=== PATIENT | female | born 1950 | race Caucasian/White ===

== ENCOUNTER 2016-03-15 02:29 | Inpatient (IN) | payer MEDICARE ==
[~2016-03-15] VITALS: Ht 162.6 cm; Wt 81.4 kg
[~2016-03-15 02:29] MED LIST: AMOX1TAB61 PO; AZAT50TA PO; CLON1TAB3 PO; CLON2TAB2 PO; LACT20SO PO; OMEP20CA9 PO; PARO40TA45 PO; POTA20TA12 PO
[2016-03-15] MEDS ORDERED: FENTANYL PF 100 MCG/2 ML VIAL. IV PRN (04:00)
--- NOTE | 2016-03-15 04:10 | RAD ---
Examination: CT head and cervical spine and maxillofacial bones without contrast. History: History of neck pain, headache after fall. COMPARISON None available TECHNIQUE Axial CT images of the head was performed without contrast and axial CT images of cervical spine was performed without contrast. Coronal sagittal reformats were performed.Axial CT images of the facial bones were performed without contrast. Coronal sagittal reformats were performed. Findings. There is no evidence of midline shift. No acute intracranial bleed or extra-axial fluid collection identified. Daley-white matter differentiation is maintained. The basal cisterns are not effaced. The bilateral orbital globes appear intact with retro-orbital fat is maintained . The evaluation of the facial bones is somewhat limited due to positioning of the face in the CT gantry. Grossly the orbital clarke appear intact. There is mild soft tissue density identified in the region of the nose could be secondary to injury. There is mild opacity identified in the bilateral ethmoidal sinus could be due to sinus disease . There is a mild soft tissue prominence identified in the nasal septum, Injury to nasal septum is not completely excluded.Correlate clinically. The vertebral body heights are maintained. There is no acute fracture cervical spine. Moderate degenerative changes identified at C4-C5, C5-C6 vertebral levels. There is partially visualized density measuring 41 Hounsfield units identified along the right posterior apical pleura could be pleural thickening or effusion. IMPRESSION - No acute intracranial findings. - No acute fracture of the cervical spine. - No obvious acute fracture of the facial bones.Probable soft tissue swelling identified in the region of the nose could be secondaryinjury. There is mild soft tissue density identified in the anterior nasal septum region probably physiological and less likely injury. Correlate clinically.The evaluation of the facial bones is somewhat limited due to positioning of the face in the CT gantry. Grossly the orbital clarke appear intact. - There is partially visualized density measuring 41 Hounsfield units identified along the right posterior apical pleura could be pleural thickening or effusion. Electronically signed by: Ar Moody (Mar 15, 2016 04:09:31)
[2016-03-15 04:13] LABS: BASO % 1 % (0-3); EOS % 6 % (0-3); HEMATOCRIT 25.1 % (36.0-47.0); HEMOGLOBIN 8.6 g/dL (12.0-15.5); LYMPH # 0.4 x10^3/uL (1.0-4.8); LYMPH % 36 % (24-48); MEAN CORPUSCULAR HEMOGLOBIN 37 pg (25-35); MEAN CORPUSCULAR HGB CONC 34 g/dL (31-37); MEAN CORPUSCULAR VOLUME 109 fL (79-100); MONO % 11 % (0-9); NEUT % 46 % (31-73); PLATELET COUNT 56 x10^3/uL (140-400); RED BLOOD COUNT 2.31 x10^6/uL (3.50-5.40); RED CELL DISTRIBUTION WIDTH 30.3 % (11.5-14.5)
[2016-03-15 04:15] LABS: WHITE BLOOD COUNT 1.1 x10^3/uL (4.0-11.0)
[2016-03-15 04:18] LABS: CALCIUM 8.3 mg/dL (8.5-10.1); CREATININE 0.5 mg/dL (0.6-1.0); GFR 123.1; POTASSIUM 3.4 mmol/L (3.5-5.1)
[2016-03-15 04:20] LABS: INR 1.6 (0.8-1.1)
[2016-03-15 04:34] LABS: ALBUMIN 3.2 g/dL (3.4-5.0); TOTAL BILIRUBIN 5.5 mg/dL (0.2-1.0); TOTAL PROTEIN 6.7 g/dL (6.4-8.2)
[2016-03-15 05:05] LABS: % EOS 11 % (0-5); NUCLEATED RBC 2
[2016-03-15 05:06] LABS: ANISOCYTOSIS MARKED; HYPOCHROMIA SLIGHT; OVALOCYTES MOD; PLT ESTIMATE DECREASED (ADEQUATE); SPHEROCYTES FEW
--- NOTE | 2016-03-15 05:24 | PHYS DOC ---
Past Medical History Past Medical History: Other Additional Past Medical Histor: autoimmune liver disease, pancytopenia Past Surgical History: Cholecystectomy Alcohol Use: None Drug Use: None Adult General Chief Complaint Chief Complaint: MECHANICAL FALL HPI HPI Patient is a 65 year old female who presents with pain all over after mechanical fall. She got up at 2 AM to go to the restroom and fell in the bathroom. She hit her face on the bathroom tub. She notes pain everywhere. She had a nosebleed that is currently controlled. She also has a cut on her left cheek with bleeding controlled. She denies difficulty breathing, nausea or vomiting, dizziness, vision changes, numbness, tingling, weakness. She does note headache, face pain, neck pain, left shoulder pain, right hand pain, right ankle pain upon palpation but otherwise states she equally hurts throughout the entirety of her body. Review of Systems Review of Systems Constitutional: Denies fever or chills [] Eyes: Denies change in visual acuity, redness, or eye pain [] HENT: Denies nasal congestion or sore throat [] Respiratory: Denies cough or shortness of breath [] Cardiovascular: No additional information not addressed in HPI [] GI: Denies abdominal pain, nausea, vomiting, bloody stools or diarrhea [] : Denies dysuria or hematuria [] Musculoskeletal: Has back pain and joint pain [] Integument: Denies rash or skin lesions [] Neurologic: Denies focal weakness or sensory changes [] Endocrine: Denies polyuria or polydipsia [] Current Medications Current Medications Current Medications Medications (Trade) Dose Ordered Sig/[facility] Start Time Stop Time Status Last Admin Dose Admin Fentanyl Citrate (Fentanyl 2ml Vial) 50 mcg PRN Q15MIN PRN 03/15/16 04:00 03/15/16 04:10 50 MCG Allergies Allergies Allergies Coded Allergies Type Severity Reaction Last Updated Verified No Known Drug Allergies 10/04/15 No Physical Exam Physical Exam Constitutional: Well developed, well nourished, non-toxic appearance. Moderate distress, moaning in the room [] HENT: Normocephalic, bilateral external ears normal, oropharynx moist, no oral exudates, nose normal. Small subcentimeric abrasion to left face adjacent to nose with no bleeding or palpable bony abnormality [] Eyes: PERRLA, EOMI, conjunctiva normal, no discharge. [] Neck: Normal range of motion, no midline spinal tenderness, supple. [] Cardiovascular:Heart rate regular rhythm [] Lungs & Thorax: Bilateral breath sounds clear to auscultation. General chest wall tenderness with no focal area; no visual or palpable abnormality [] Abdomen: Bowel sounds normal, soft, no tenderness, no masses, no pulsatile masses. [] Skin: Warm, dry, no erythema, no rash. [] Back: No midline spinal tenderness, no CVA tenderness. [] Extremities: RUE: No obvious deformity, but has old appearing ecchymosis to dorsum of right hand with no other discoloration of RUE; Has tenderness about hand in general with no snuffbox tenderness or pain with thumb axial loading; Full ROM with shoulder/elbow/wrist/hand; Can pronate/supinate; Can make fist/ok sign/thumb up/ finger cross and spread; Can flex/ex wrist; Good radial pulse and brisk cap refill equal bilaterally; sensation intact to light touch m/u/r/ax nerves LUE: No obvious deformity or discoloration; Full ROM with shoulder/elbow/wrist/ hand; Can pronate/supinate; Can make fist/ok sign/thumb up/finger cross and spread; Can flex/ex wrist; Good radial pulse and brisk cap refill equal bilaterally; sensation intact to light touch m/u/r/ax nerves RLE: No obvious deformity or discoloration; Able to flex/ex/IR/ER hip, knee full rom, ankle df/pf, toes df/pf; No obvious knee joint laxity with stressing; SILT ray/sa/sp/dp/tib distributions; good dp and pt pulses equal bilaterally LLE:No obvious deformity or discoloration; Able to flex/ex/IR/ER hip, knee full rom, ankle df/pf, toes df/pf; No obvious knee joint laxity with stressing; SILT ray/sa/sp/dp/tib distributions; good dp and pt pulses equal bilaterally Neurologic: Alert and oriented X 3, normal motor function, normal sensory function, no focal deficits noted, cranial nerves II through XII intact. [] Psychologic: Affect normal, judgement normal, mood normal. [] Current Patient Data Vital Signs Vital Signs Date Time Temp Pulse Resp B/P Pulse Ox O2 Delivery O2 Flow Rate FiO2 03/15/16 04:10 18 Room Air 03/15/16 02:30 98.4 79 130/59 92 98.4 Lab Values Laboratory Tests Test 03/15/16 03:00 White Blood Count 1.1x10^3/uL (4.0-11.0) *L Red Blood Count 2.31x10^6/uL (3.50-5.40) L Hemoglobin 8.6g/dL (12.0-15.5) L Hematocrit 25.1% (36.0-47.0) L Mean Corpuscular Volume 109fL (79-100) H Mean Corpuscular Hemoglobin 37pg (25-35) H Mean Corpuscular Hemoglobin Concent 34g/dL (31-37) Red Cell Distribution Width 30.3% (11.5-14.5) H Platelet Count 56x10^3/uL (140-400) L Neutrophils (%) (Auto) 46% (31-73) Lymphocytes (%) (Auto) 36% (24-48) Monocytes (%) (Auto) 11% (0-9) H Eosinophils (%) (Auto) 6% (0-3) H Basophils (%) (Auto) 1% (0-3) Neutrophils # (Auto) 0.5x10^3uL (1.8-7.7) L Lymphocytes # (Auto) 0.4x10^3/uL (1.0-4.8) L Monocytes # (Auto) 0.1x10^3/uL (0.0-1.1) Eosinophils # (Auto) 0.1x10^3/uL (0.0-0.7) Basophils # (Auto) 0.0x10^3/uL (0.0-0.2) Segmented Neutrophils % 35% (35-66) Band Neutrophils % 2% (0-9) Lymphocytes % 43% (24-48) Monocytes % 9% (0-10) Eosinophils % 11% (0-5) H Nucleated Red Blood Cells 2 Platelet Estimate Decreased (ADEQUATE) Hypochromasia Slight Anisocytosis Marked Macrocytosis Mod Spherocytes Few Ovalocytes Mod Prothrombin Time 18.0SEC (11.7-14.0) H Prothrombin Time INR 1.6 (0.8-1.1) H Sodium Level 147mmol/L (136-145) H Potassium Level 3.4mmol/L (3.5-5.1) L Chloride Level 108mmol/L (98-107) H Carbon Dioxide Level 34mmol/L (21-32) H Anion Gap 5 (6-14) L Blood Urea Nitrogen 8mg/dL (7-20) Creatinine 0.5mg/dL (0.6-1.0) L Estimated GFR (Cockcroft-Gault) 123.1 Glucose Level 92mg/dL (70-99) Calcium Level 8.3mg/dL (8.5-10.1) L Total Bilirubin 5.5mg/dL (0.2-1.0) H Direct Bilirubin 1.0mg/dL (0.0-0.2) H Aspartate Amino Transferase (AST) 31U/L (15-37) Alanine Aminotransferase (ALT) 10U/L (14-59) L Alkaline Phosphatase 81U/L (46-116) Creatine Kinase 23U/L (26-192) L Troponin I Quantitative 0.018ng/mL (0.000-0.055) Total Protein 6.7g/dL (6.4-8.2) Albumin 3.2g/dL (3.4-5.0) L Laboratory Tests 03/15/16 03:00 Laboratory Tests 03/15/16 03:00 EKG EKG EKG as interpreted by me as normal sinus rhythm, rate 80, no ST-T changes, normal intervals, no ectopy Radiology/Procedures Radiology/Procedures CT head, maxillofacial, and cervical spine without contrast IMPRESSION - No acute intracranial findings. - No acute fracture of the cervical spine. - No obvious acute fracture of the facial bones.Probable soft tissue swelling identified in the region of the nose could be secondaryinjury. There is mild soft tissue density identified in the anterior nasal septum region probably physiological and less likely injury. Correlate clinically.The evaluation of the facial bones is somewhat limited due to positioning of the face in the CT gantry. Grossly the orbital clarke appear intact. - There is partially visualized density measuring 41 Hounsfield units identified along the right posterior apical pleura could be pleural thickening or effusion. Electronically signed by: Ar Moody (Mar 15, 2016 04:09:31) Chest xray as interpreted by me with no acute cardiopulmonary disease process Left shoulder x-ray as interpreted by me with no acute fracture or dislocation Right hand x-ray as interpreted by me with no acute fracture or dislocation Right ankle as interpreted by me was no acute fracture or dislocation Course & Med Decision Making Course & Med Decision Making Pertinent Labs and Imaging studies reviewed. (See chart for details) Workup is largely unremarkable compared to recent laboratory evaluation. She has continued pancytopenia and alkalosis. She has mild hypokalemia. Her pain is improved with fentanyl, but she continues to complain of generalized pain. Imaging thus far is unremarkable. Discussed case with Dr. Ahumada, who agrees to admit for further observation and pain control. Dragon Disclaimer Dragon Disclaimer This electronic medical record was generated, in whole or in part, using a voice recognition dictation system. Departure Departure Impression: Primary Impression: Closed head injury Additional Impressions: Generalized pain Pancytopenia Abrasion of face Disposition: ADMITTED INPATIENT Condition: STABLE Referrals: GENEVA AHUMADA MD (PCP) Problem Qualifiers Primary Impression: Closed head injury Encounter type: initial encounter Qualified Code: S09.90XA - Unspecified injury of head, initial encounter Additional Impressions: Abrasion of face Encounter type: initial encounter Qualified Code: S00.81XA - Abrasion of other part of head, initial encounter Nell ETIENNE MD Mar 15, 2016 05:24
--- NOTE | 2016-03-15 07:36 | ACF ---
Admission Forms Criteria HEAD AND NECK DISEASE [facility] Clinical Indications for Admission to Inpatient Care ( Place 'X' for any and all applicable criteria): Hospital admission is needed for appropriate care of the patient because of ANY ONE of the following (1)(2): [ ]I. Severe sinusitis as indicated by ANY ONE of the following (6)(13)(21) [ ]a) Suspected BEHAVIORIST infection [ ]b) Bacteremia [ ]c) Hemodynamic instability [ ]d) Outpatient and observation care antibiotic treatment have failed or are not considered appropriate [ ]e) Surgical drainage needed that cannot be performed on an outpatient basis or observation. setting [ ]f) Suspected orbital involvement [ ]II. Acute glaucoma unresponsive to emergency treatment that requires medication or other treatment beyond the scope of observation care (1) [ ]III. Severe eye infection or inflammation (eg, uveitis) which is unresponsive to emergency treatment and requires medication or other treatment beyond the scope of observation care (1)(2)(3)(4) [ ]IV. Severe epistaxis requiring posterior packing (5)(6) [ ]V. Acute bacterial labyrinthitis(6)(7) [ ]. Viral labyrinthitis with symptoms uncontrollable on an outpatient or observation care basis (6)(7) [ ]VII. Severe necrotizing external otitis unresponsive to outpatient and observation care treatment(6) [ ]VIII. Otitis media requiring treatment beyond the scope of outpatient and observation care, as indicated by presence or persistence of ANY ONE of the following(6)(8)(9): [ ]a) Hemodynamic instability [ ]b) Mastoiditis [ ]c) Suspected BEHAVIORIST infection [ ]d) Bacteremia [ ]e) Surgical drainage needed that cannot be performed as an outpatient. or in an observation setting. [ ]IX. Epiglottitis or supraglottitis(6)(11)(12)(13)(14) [ ]X. Stridor or laryngospasm (unresponsive to emergency management) (6)(11)( 12)(13)(14) [ ]XI. Acute pharyngitis or tonsillitis and ANY ONE of the following (14)(15)( 16): [ ]a) Hemodynamic instability remaining after emergency or observation level care (as appropriate) [ ]b) Surgical drainage needed that cannot be performed in outpatient or observation setting [ ]c) Mediastinitis [ ]d) Thrombophlebitis of internal jugular vein (Lemierre syndrome) [ ]XII. Sialoadenitis and ANY ONE of the following (17) (18) [ ]a) Hemodynamic instability remaining after emergency or observation level care(as appropriate) [ ]b) Surgical drainage needed that cannot be performed in outpatient or observation setting [ ]XIII. Airway blockage or inability to swallow (6)(12)(19)(20) [ ]XIV.Complicated infection indicated by ANY ONE of the following(6)(13)(21)(22 ): [ ]a) Abscess or swelling causing airway difficulty(12) [ ]b) Bacteremia [ ]c) Hemodynamic instability [ ]d) Suspected BEHAVIORIST infection [ ]e) Outpatient and observation care antibiotic treatment have failed or are not considered appropriate [ ]f) Surgical drainage needed that cannot be performed on an outpatient basis or observation setting [ ]g) Other management need that cannot be performed in outpatient or observation setting: [X ]XV. Severe trauma requiring inpatient medical treatment of eye, head, pharynx, or airway (1)(23)([phone]) [ ]XVI. Ischemic optic neuropathy(11) [ ]XVII.Head or Neck Disease condition and ANY ONE of the following: [ ]a) Symptom or finding for which emergency and observation care have failed or are not considered appropriate (Also use General Criteria: Observation Care as appropriate) [ ]b) Presence of ANY ONE of the following: [ ]i) A General Admission Criteria [ ]ii) A Pediatric General Admission Criteria The original [facility] content created by [facility] has been revised. The portions of the content which have been revised are identified through the use of italic text or in bold, and [facility] has neither reviewed nor approved the modified material. All other unmodified content is copyright [facility]. Please see references footnoted in the original [facility] edition 2016 Admission Criteria Met?: Yes CARINA ROACH Mar 15, 2016 07:36
--- NOTE | 2016-03-15 07:46 | RAD ---
EXAM: Left shoulder, 2 views. HISTORY: Fall. COMPARISON: None. FINDINGS: Frontal and transscapular views of the left shoulder are obtained. There is no fracture, dislocation or subluxation. IMPRESSION: No acute osseous finding.
--- NOTE | 2016-03-15 07:47 | RAD ---
EXAM: Right ankle, 3 views. HISTORY: Fall. COMPARISON: None. FINDINGS: Frontal, lateral and mortise views of the right ankle are obtained. There is no acute fracture, dislocation or subluxation. There is degenerative subchondral cyst formation involving the lateral talar dome. There is a moderate plantar spur. IMPRESSION: 1. No acute osseous finding. 2. Tibiotalar osteoarthritis and moderate plantar spur.
--- NOTE | 2016-03-15 07:48 | RAD ---
EXAM: Right hand, 3 views. HISTORY: Fall. COMPARISON: None. FINDINGS: Frontal, lateral and oblique views of the right hand are obtained. There is no fracture, dislocation or subluxation. There is mild spurring of the first interphalangeal joint and second through fifth little interphalangeal joints. There is suspected bone demineralization. IMPRESSION: No acute osseous finding.
--- NOTE | 2016-03-15 07:50 | RAD ---
EXAM: Chest, single view. HISTORY: Pain. COMPARISON: 10/31/2014. FINDINGS: A frontal view of the chest is obtained. There is stable mild diffuse increased interstitial opacity without ronn congestion. There is basilar atelectasis or pleural-parenchymal scarring. The heart is normal in size for portable technique. There is no effusion or pneumothorax. IMPRESSION: 1. Suspected bilateral basilar atelectasis or pleural-parenchymal scarring. 2. Stable diffuse increased interstitial opacity without ronn congestion.
[2016-03-15 08:03] VITALS: BP 111/48
--- NOTE | 2016-03-15 09:18 | EKG ---
[facility] [address] [place] [id number] Test Date: 2016-03-15 Test Time: 03:05:39 Pat Name: KINGSLEY FOWLER Department: Room: [facility] Gender: F Electronic Design Engineer: : [id number] Requested By: Nell ETIENNE Order Number: [id number] Reading MD: Stefan Solorio Measurements Intervals [place] Rate: 80 P: 90 CT: 178 QRS: 56 QRSD: 98 T: 42 QT: 406 QTc: 472 Interpretive Statements SINUS RHYTHM Electronically Signed On 03-17-2016 10:32:45 [employer]ORIAL ADVISER by Stefan Solorio
[2016-03-15 10:05] VITALS: BP 109/43
--- NOTE | 2016-03-15 12:38 | PDOC2 ---
CONSULT Date of Consult Date of Consult DATE: 03/15/16 TIME: 12:29 Reason for Consult Reason for Consult: pancytopenia Referring Physician Referring Physician: Cristian Identification/Chief Complaint Chief Complaint fall History of Present Illness Reason for Visit: Pt with known pancytopenia and longstanding autoimmune hepatitis Very recent admit earlier this month and was eval by heme. Some of her counts were lower than recent per [facility] system and was concern imuran was contributing so that was held. She was also transfused at that time and was d/c but readmitted after fall I am asked to see regarding lab and overall appear stable Past Medical History Cardiovascular: HTN CENTRAL NERVOUS SYSTEM: Other GI: Other Hepatobiliary: Cirrhosis, Other (autoimmune hepatitis) Psych: Depression Renal/: UTI Past Surgical History Past Surgical History: Cholecystectomy Family History Family History: Other (she tells me positive for liver disease, but no heme disease) Social History <1 pack per day ALCOHOL: none Drugs: None Current Problem List Problem List Problems Medical Problems: (1) Abrasion of face Status: Acute (2) Closed head injury Status: Acute (3) Face lacerations Status: Acute (4) Generalized pain Status: Acute (5) Pancytopenia Status: Acute Current Medications Current Medications Current Medications Fentanyl Citrate (Fentanyl 2ml Vial) 50 mcg PRN Q15MIN PRN IV pain over 3 Last administered on 03/15/16t 04:10; Start 03/15/16 at 04:00 Morphine Sulfate 2 mg PRN Q2HR PRN IV PAIN; Start 03/15/16 at 12:00 Active Scripts Active Lactulose 20 Gm/30 Ml Solution 30 Gm PO BID Reported Clonazepam 1 Mg Tablet 2 Tab PO QHS Potassium Chloride 20 Meq Tab.er.prt 1 Tab PO DAILY Paxil (Paroxetine Hcl) 40 Mg Tablet 1 Tab PO DAILY Omeprazole 20 Mg Capsule. 1 Cap PO DAILY Allergies Allergies: Coded Allergies: No Known Drug Allergies (Unverified , 10/04/15) ROS General: YES: Fatigue, Malaise HEENT: YES: Epistaxis Musculoskeletal: Yes Other (diffuse pain) Physical Exam General: Cooperative, Other (slow to answer, but seem appropriate) HEENT: Atraumatic, Other (some slceral icterus) Lungs: Clear to auscultation Heart: Regular rate, Other (has murmur) Abdomen: Soft, Other (overweight, can not feel gross organomegaly) Extremities: No clubbing, No cyanosis, No edema Psych/Mental Status: Other (a little slow answering, but is appropriate, cooperative) MUSCULOSKELETAL: No swelling Vitals VITALS Vital Signs Date Time Temp Pulse Resp B/P Pulse Ox O2 Delivery O2 Flow Rate FiO2 03/15/16 10:05 97.9 78 18 109/43 91 Room Air 97.9 Labs Labs Laboratory Tests Test 03/15/16 03:00 03/15/16 05:50 White Blood Count 1.1x10^3/uL (4.0-11.0) Red Blood Count 2.31x10^6/uL (3.50-5.40) Hemoglobin 8.6g/dL (12.0-15.5) Hematocrit 25.1% (36.0-47.0) Mean Corpuscular Volume 109fL (79-100) Mean Corpuscular Hemoglobin 37pg (25-35) Mean Corpuscular Hemoglobin Concent 34g/dL (31-37) Red Cell Distribution Width 30.3% (11.5-14.5) Platelet Count 56x10^3/uL (140-400) Neutrophils (%) (Auto) 46% (31-73) Lymphocytes (%) (Auto) 36% (24-48) Monocytes (%) (Auto) 11% (0-9) Eosinophils (%) (Auto) 6% (0-3) Basophils (%) (Auto) 1% (0-3) Neutrophils # (Auto) 0.5x10^3uL (1.8-7.7) Lymphocytes # (Auto) 0.4x10^3/uL (1.0-4.8) Monocytes # (Auto) 0.1x10^3/uL (0.0-1.1) Eosinophils # (Auto) 0.1x10^3/uL (0.0-0.7) Basophils # (Auto) 0.0x10^3/uL (0.0-0.2) Segmented Neutrophils % 35% (35-66) Band Neutrophils % 2% (0-9) Lymphocytes % 43% (24-48) Monocytes % 9% (0-10) Eosinophils % 11% (0-5) Nucleated Red Blood Cells 2 Platelet Estimate Decreased (ADEQUATE) Hypochromasia Slight Anisocytosis Marked Macrocytosis Mod Spherocytes Few Ovalocytes Mod Prothrombin Time 18.0SEC (11.7-14.0) Prothromb Time International Ratio 1.6 (0.8-1.1) Sodium Level 147mmol/L (136-145) Potassium Level 3.4mmol/L (3.5-5.1) Chloride Level 108mmol/L (98-107) Carbon Dioxide Level 34mmol/L (21-32) Anion Gap 5 (6-14) Blood Urea Nitrogen 8mg/dL (7-20) Creatinine 0.5mg/dL (0.6-1.0) Estimated GFR (Cockcroft-Gault) 123.1 Glucose Level 92mg/dL (70-99) Calcium Level 8.3mg/dL (8.5-10.1) Total Bilirubin 5.5mg/dL (0.2-1.0) Direct Bilirubin 1.0mg/dL (0.0-0.2) Aspartate Amino Transf (AST/SGOT) 31U/L (15-37) Alanine Aminotransferase (ALT/SGPT) 10U/L (14-59) Alkaline Phosphatase 81U/L (46-116) Creatine Kinase 23U/L (26-192) Troponin I Quantitative 0.018ng/mL (0.000-0.055) Total Protein 6.7g/dL (6.4-8.2) Albumin 3.2g/dL (3.4-5.0) Lactic Acid Level 0.8mmol/L (0.4-2.0) Ammonia 36mcmol/L (11-34) Laboratory Tests Test 03/15/16 03:00 03/15/16 05:50 White Blood Count 1.1x10^3/uL (4.0-11.0) Red Blood Count 2.31x10^6/uL (3.50-5.40) Hemoglobin 8.6g/dL (12.0-15.5) Hematocrit 25.1% (36.0-47.0) Mean Corpuscular Volume 109fL (79-100) Mean Corpuscular Hemoglobin 37pg (25-35) Mean Corpuscular Hemoglobin Concent 34g/dL (31-37) Red Cell Distribution Width 30.3% (11.5-14.5) Platelet Count 56x10^3/uL (140-400) Neutrophils (%) (Auto) 46% (31-73) Lymphocytes (%) (Auto) 36% (24-48) Monocytes (%) (Auto) 11% (0-9) Eosinophils (%) (Auto) 6% (0-3) Basophils (%) (Auto) 1% (0-3) Neutrophils # (Auto) 0.5x10^3uL (1.8-7.7) Lymphocytes # (Auto) 0.4x10^3/uL (1.0-4.8) Monocytes # (Auto) 0.1x10^3/uL (0.0-1.1) Eosinophils # (Auto) 0.1x10^3/uL (0.0-0.7) Basophils # (Auto) 0.0x10^3/uL (0.0-0.2) Segmented Neutrophils % 35% (35-66) Band Neutrophils % 2% (0-9) Lymphocytes % 43% (24-48) Monocytes % 9% (0-10) Eosinophils % 11% (0-5) Nucleated Red Blood Cells 2 Platelet Estimate Decreased (ADEQUATE) Hypochromasia Slight Anisocytosis Marked Macrocytosis Mod Spherocytes Few Ovalocytes Mod Prothrombin Time 18.0SEC (11.7-14.0) Prothromb Time International Ratio 1.6 (0.8-1.1) Sodium Level 147mmol/L (136-145) Potassium Level 3.4mmol/L (3.5-5.1) Chloride Level 108mmol/L (98-107) Carbon Dioxide Level 34mmol/L (21-32) Anion Gap 5 (6-14) Blood Urea Nitrogen 8mg/dL (7-20) Creatinine 0.5mg/dL (0.6-1.0) Estimated GFR (Cockcroft-Gault) 123.1 Glucose Level 92mg/dL (70-99) Calcium Level 8.3mg/dL (8.5-10.1) Total Bilirubin 5.5mg/dL (0.2-1.0) Direct Bilirubin 1.0mg/dL (0.0-0.2) Aspartate Amino Transf (AST/SGOT) 31U/L (15-37) Alanine Aminotransferase (ALT/SGPT) 10U/L (14-59) Alkaline Phosphatase 81U/L (46-116) Creatine Kinase 23U/L (26-192) Troponin I Quantitative 0.018ng/mL (0.000-0.055) Total Protein 6.7g/dL (6.4-8.2) Albumin 3.2g/dL (3.4-5.0) Lactic Acid Level 0.8mmol/L (0.4-2.0) Ammonia 36mcmol/L (11-34) Assessment/Plan Assessment/Plan 1. Pancytopenia Appears to have chronic and somewhat more acute component I suspect her liver disease and hypersplenism contribute and imuran was implicated and d/c after her recent admit - can take some time to see improvement from that and from heme standpoint would observe notably anc 500 and hemoglobin stable, plts slightly better Do not feel there is heme indication for steroids at this time 2. Anemia - I doubt she has hemolysis - note largely indirect bili, so will check haptobglobin, ldh, retic 3. Autoimmune hepatitis - also h/o cirrhosis/hepatic encephalopathy 4. She tells me she was recently living at home - wonder if she will need placement of some type IVAN NIELSEN MD Mar 15, 2016 12:38
[2016-03-15] MEDS: LACTULOSE 20 GM/30 ML SOLUTION. PO SCH ×2 (12:44→20:29)
[2016-03-15] MEDS: PANTOPRAZOLE 40 MG TABLET. PO SCH (12:44)
[2016-03-15] MEDS: MORPHINE SULFATE 2 MG/ML DISP.SYRIN. IV PRN ×2 (12:45→20:51)
--- NOTE | 2016-03-15 14:22 | PDOC ---
OBJECTIVE Vital Signs Vital Signs Date Time Temp Pulse Resp B/P Pulse Ox O2 Delivery O2 Flow Rate FiO2 03/15/16 12:45 91 Room Air 03/15/16 10:05 97.9 78 18 109/43 91 Room Air 97.9 03/15/16 08:03 97.7 77 18 111/48 90 Room Air 97.7 03/15/16 08:00 Room Air 03/15/16 07:50 Room Air 03/15/16 05:12 74 141/59 100 Room Air 03/15/16 04:10 18 Room Air 03/15/16 03:11 80 145/59 92 Room Air 03/15/16 02:56 78 130/59 92 Room Air 03/15/16 02:30 98.4 79 20 130/59 92 Room Air 98.4 ASSESSMENT/PLAN Assessment/Plan [id number] H&P dictated Problems: COMMENT Lab Laboratory Tests Test 03/15/16 03:00 03/15/16 05:50 03/15/16 13:25 White Blood Count 1.1x10^3/uL (4.0-11.0) Red Blood Count 2.31x10^6/uL (3.50-5.40) Hemoglobin 8.6g/dL (12.0-15.5) Hematocrit 25.1% (36.0-47.0) Mean Corpuscular Volume 109fL (79-100) Mean Corpuscular Hemoglobin 37pg (25-35) Mean Corpuscular Hemoglobin Concent 34g/dL (31-37) Red Cell Distribution Width 30.3% (11.5-14.5) Platelet Count 56x10^3/uL (140-400) Neutrophils (%) (Auto) 46% (31-73) Lymphocytes (%) (Auto) 36% (24-48) Monocytes (%) (Auto) 11% (0-9) Eosinophils (%) (Auto) 6% (0-3) Basophils (%) (Auto) 1% (0-3) Neutrophils # (Auto) 0.5x10^3uL (1.8-7.7) Lymphocytes # (Auto) 0.4x10^3/uL (1.0-4.8) Monocytes # (Auto) 0.1x10^3/uL (0.0-1.1) Eosinophils # (Auto) 0.1x10^3/uL (0.0-0.7) Basophils # (Auto) 0.0x10^3/uL (0.0-0.2) Segmented Neutrophils % 35% (35-66) Band Neutrophils % 2% (0-9) Lymphocytes % 43% (24-48) Monocytes % 9% (0-10) Eosinophils % 11% (0-5) Nucleated Red Blood Cells 2 Platelet Estimate Decreased (ADEQUATE) Hypochromasia Slight Anisocytosis Marked Macrocytosis Mod Spherocytes Few Ovalocytes Mod Reticulocyte Count (auto) 7.9% (0.5-2.5) Prothrombin Time 18.0SEC (11.7-14.0) Prothromb Time International Ratio 1.6 (0.8-1.1) Sodium Level 147mmol/L (136-145) Potassium Level 3.4mmol/L (3.5-5.1) Chloride Level 108mmol/L (98-107) Carbon Dioxide Level 34mmol/L (21-32) Anion Gap 5 (6-14) Blood Urea Nitrogen 8mg/dL (7-20) Creatinine 0.5mg/dL (0.6-1.0) Estimated GFR (Cockcroft-Gault) 123.1 Glucose Level 92mg/dL (70-99) Calcium Level 8.3mg/dL (8.5-10.1) Total Bilirubin 5.5mg/dL (0.2-1.0) Direct Bilirubin 1.0mg/dL (0.0-0.2) Aspartate Amino Transf (AST/SGOT) 31U/L (15-37) Alanine Aminotransferase (ALT/SGPT) 10U/L (14-59) Alkaline Phosphatase 81U/L (46-116) Creatine Kinase 23U/L (26-192) Troponin I Quantitative 0.018ng/mL (0.000-0.055) Total Protein 6.7g/dL (6.4-8.2) Albumin 3.2g/dL (3.4-5.0) Lactic Acid Level 0.8mmol/L (0.4-2.0) Ammonia 36mcmol/L (11-34) Lactate Dehydrogenase 306U/L (81-234) KULWINDER MATHEWS MD Mar 15, 2016 14:22
[2016-03-15 15:28] VITALS: BP 118/43
[2016-03-15 19:38] VITALS: BP 115/54
--- NOTE | 2016-03-15 20:00 | HP ---
[facility] NUM[facility]: [id number] HISTORY OF PRESENT ILLNESS: The patient is a 65-year-old lady who has a previous history of autoimmune hepatitis and autoimmune liver disease who presents to the Emergency Room with pain after a mechanical fall. She was evaluated thoroughly in the Emergency Room with several x-rays including her ankle, hand, shoulder, chest x-ray, maxillofacial CT as well as a head and cervical spine CT. All this did not reveal any evidence of fracture. She was very weak and in pain and was admitted for further observation. The patient also was found to have pancytopenia and worsening decrease in her white blood cells. She apparently has been on Imuran treatment for her autoimmune hepatitis and it was thought that this could be causing her pancytopenia and this was stopped during last admission. She does report having nosebleed prior to her arrival to the Emergency Room, but this has stopped. She also did have a cut on her left cheek that was bleeding prior to her coming to the Emergency Room. This also has stopped. She does complain of pain all over. She denies cough, fever or chills. She does feel weak all over. She is a poor historian. She told me that she has not been at [facility] before and that most of her care was at . Later I found out that she was at [facility] a few weeks ago. She also stated that she lives at home, but the nurse reported that [facility]. PAST MEDICAL HISTORY: Significant for autoimmune hepatitis and liver disease, depression, anxiety, liver cirrhosis, osteoarthritis, previous history of UTIs, gastroesophageal reflux disease, peptic ulcer disease, sleep apnea, history of cataract and glaucoma, history of cholecystectomy. FAMILY HISTORY: Negative for liver disease according to the patient. SOCIAL HISTORY: She does not drink alcohol or use drugs. She is not reported to smoke. REVIEW OF SYSTEMS: CONSTITUTIONAL: She denies fever or chills. EYES: She denies visual changes. HENT: Denies nasal congestion or sore throat. She did complain of nosebleed as mentioned in the HPI. RESPIRATORY: She denies increasing shortness of breath. CARDIOVASCULAR: Denies chest pain, but does have pain all over due to the fall. GASTROINTESTINAL: Denies abdominal pain. Denies vomiting. GENITOURINARY: Denies dysuria or hematuria. MUSCULOSKELETAL: She does have generalized pain, mostly in her shoulder and neck due to the fall. DERMATOLOGY: She does have several ecchymoses, bruises and some small lacerations, not deep, on her face and upper extremities. NEUROLOGIC: She does have generalized weakness, but no focal weakness. PHYSICAL EXAMINATION: CONSTITUTIONAL: She looks pale and she is moaning when I got in the room. HEENT: Her oropharynx is moist. No exudate from her nose or eyes. She does have abrasion on left side of her face and dry blood in her nose, but no active bleed. EYES: Her conjunctivae are icterus. NECK: Supple. HEART: Regular rate and rhythm. LUNGS: Decreased breath sounds bilaterally and generalized chest wall tenderness. ABDOMEN: Soft. No rebound or guarding. SKIN: Warm and dry, several ecchymoses and bruises noted. EXTREMITIES: No edema. No obvious deformity in her extremities. NEUROLOGY: She is alert and answers questions, but I am not sure that she is totally oriented. IMPRESSION: 1. Mechanical fall with no obvious fracture. 2. Pancytopenia due to autoimmune hepatitis and liver cirrhosis. 3. Anemia with high indirect bilirubin, concerned about hemolytic anemia. We will ask Hematology to follow. 4. Electrolytes abnormality due to dehydration. 5. Multiple bruises and ecchymoses. 6. Autoimmune hepatitis. GI was consulted. Consider steroids, but will leave up to GI and Hematology. 7. History of encephalopathy. KULWINDER MATHEWS MD DR: NANI/talat JOB#: [id number] / [id number]
[2016-03-15 23:00] VITALS: BP 115/46
[2016-03-16] MEDS: MORPHINE SULFATE 2 MG/ML DISP.SYRIN. IV PRN ×3 (03:46→23:49)
[2016-03-16 03:55] VITALS: BP 130/59
[2016-03-16 05:50] LABS: HEMATOCRIT 24.4 % (36.0-47.0); HEMOGLOBIN 8.5 g/dL (12.0-15.5); RED BLOOD COUNT 2.26 x10^6/uL (3.50-5.40); RED CELL DISTRIBUTION WIDTH 31.1 % (11.5-14.5)
[2016-03-16 06:10] LABS: ALBUMIN/GLOBULIN RATIO 0.8 (1.0-1.7); CALCIUM 8.2 mg/dL (8.5-10.1); WHITE BLOOD COUNT 1.3 x10^3/uL (4.0-11.0)
[2016-03-16 06:11] LABS: CREATININE 0.5 mg/dL (0.6-1.0); GFR 123.1; POTASSIUM 3.3 mmol/L (3.5-5.1); TOTAL BILIRUBIN 5.5 mg/dL (0.2-1.0)
[2016-03-16 07:00] VITALS: BP 121/52
--- NOTE | 2016-03-16 08:05 | CONS ---
DATE OF CONSULTATION: 03/15/2016 PRIMARY PHYSICIAN: Luis Miguel Ahumada MD. CHIEF COMPLAINT: Recent fall, history of autoimmune hepatitis, cirrhosis and hepatic encephalopathy. HISTORY OF PRESENT ILLNESS: This is a 65-year-old female who was just recently in the hospital and seen by my associate in the hospital for the complaints of autoimmune hepatitis, cirrhosis and pancytopenia with anemia. At that time, she presented with hemoglobin of 4 and was transfused. She has been monitored and treated at the [facility] for her anemia, pancytopenia and also her autoimmune liver disease. She was on Imuran in the past apparently for treatment of her autoimmune disease, but due to the pancytopenia, was recently discontinued. She was discharged 2 days ago, but fell at home. She said she is not sure why she fell, but landed and hit her face, has some pain, but also is somewhat somnolent, confused at this point as to whether encephalopathy or medications are contributing to her instability is unclear. She denies any focal neurologic deficits at this time. She was admitted for observation. She denies any new bleeding elsewhere. Her hemoglobin on admission this time was 8.6. PAST MEDICAL HISTORY: 1. Autoimmune hepatitis with cirrhosis and encephalopathy. 2. Pancytopenia. 3. Depression. 4. Urinary tract infection. 5. Hypertension. PAST SURGICAL HISTORY: Cholecystectomy. ALLERGIES: None are reported. MEDICATIONS: See the list. SOCIAL HISTORY: Does not smoke or drink. REVIEW OF SYSTEMS: CONSTITUTIONAL: She is weak, somewhat confused. No fever or chills. HEENT: She is complaining of abrasion and discomfort in her face and left cheek, but also notes headache and generalized pain as well in her ankles, hand from the fall apparently. PULMONARY: Denies shortness of breath. CARDIOVASCULAR: Denies chest pain. GENITOURINARY: Denies changes in urinary pattern. NEUROLOGIC: Denies seizures, paralysis. MUSCULOSKELETAL: She has these chronic symptoms as well as the acute symptoms from her recent fall. PHYSICAL EXAMINATION: VITAL SIGNS: Blood pressure 111/48, pulse 77, respirations 18. She is afebrile. She is somnolent, arousable, complaining of pain all over. HEENT: Pupils equal round and reactive. She is icteric. There is an abrasion on her face, but no active bleeding. NECK: Supple. CHEST: Clear. HEART: Regular rate and rhythm. ABDOMEN: She is obese. Bowel sounds present, soft, nontender. NEUROLOGIC: She is somnolent, arousable, no focal deficits are appreciated. The possibility of asterixes seems likely. LABORATORY DATA: Hemoglobin 8.6, white blood cell count is 1100, platelet count 56,000. INR 1.6, bilirubin 5.5, but direct was 1, AST 31, ALT 10, ammonia level is 36, which is slightly elevated. LDH elevated at 306, troponin negative, albumin 3.2. IMAGING: A variety of films from chest, hand, shoulder, etc., were done and apparently were interpreted as negative for fracture. IMPRESSION: 1. Chronic autoimmune hepatitis with cirrhosis and probable encephalopathy. She is on lactulose, but also takes Klonopin. There may be some drug interaction causing more confusion and this will need to be addressed as she moves forward, particularly with this fall at home, which is unlikely to be related to her anemia alone. 2. Anemia. This appears to be a combination of features including pancytopenia. No active GI bleeding has been reported recently. PLAN: 1. Monitor her progress. 2. Continue lactulose and to avoid encephalopathy. 3. We will defer to the other consultants regarding the treatment options. EMMANUELLE MAE MD DR: RUTH/talat JOB#: [id number] / [id number]
[2016-03-16] MEDS: PANTOPRAZOLE 40 MG TABLET. PO SCH (08:39)
[2016-03-16] MEDS: LACTULOSE 20 GM/30 ML SOLUTION. PO SCH ×2 (08:39→20:56)
[2016-03-16] MEDS: FOLIC ACID 1 MG TABLET PO SCH (09:30)
[2016-03-16] MEDS: PHYTONADIONE 5 MG TABLET PO SCH (09:30)
[2016-03-16] MEDS: THIAMINE 100 MG TABLET. PO SCH (09:30)
--- NOTE | 2016-03-16 10:52 | PDOC ---
PROGRESS NOTES Subjective Subjective Heme f/u Chronic pancytopenia in setting of AIH and cirrhosis her counts were noted at an earlier admit this month to be a little lower and imuran was implicated and is on hold Readmit after recent fall Overall counts not markedly different, if not sl better She does have high indirect bili and is reticing. No clear bleeding. LDH only sl elevated and haptoglobin pending Overall counts including hemoglobin stable Objective Objective Vital Signs Date Time Temp Pulse Resp B/P Pulse Ox O2 Delivery O2 Flow Rate FiO2 03/16/16 08:30 Room Air 03/16/16 07:00 98.7 70 16 121/52 97 98.7 03/16/16 04:16 6.0 Intake and Output 03/16/16 07:00 Intake Total 920 ml Balance 920 ml Intake Oral 920 ml # Voids 6 Physical Exam Abdomen: Soft, No tenderness Heart: Regular rate General: Other (sleepy) MUSCULOSKELETAL: No swelling Assessment Assessment 1. Chronic pancytopenia - likely multifactorial Imuran has recently been d/c and counts do appear to be slightly improved She has adequate retic - With increased indirect bili, there may be hemolysis, but not clearly immune - many pts with liver disease can hemolyze from membrane instability Will check henny but at present would observe from heme standpoint. 2. AIH/cirrhosis and hypersplenism. Problems Medical Problems: (1) Abrasion of face Status: Acute (2) Closed head injury Status: Acute (3) Face lacerations Status: Acute (4) Generalized pain Status: Acute (5) Pancytopenia Status: Acute Comment Review of Relevant I have reviewed the following items bruce (where applicable) has been applied. Labs Laboratory Tests Test 03/15/16 03:00 03/15/16 05:50 03/15/16 08:00 03/15/16 13:25 White Blood Count 1.1x10^3/uL (4.0-11.0) Red Blood Count 2.31x10^6/uL (3.50-5.40) Hemoglobin 8.6g/dL (12.0-15.5) Hematocrit 25.1% (36.0-47.0) Mean Corpuscular Volume 109fL (79-100) Mean Corpuscular Hemoglobin 37pg (25-35) Mean Corpuscular Hemoglobin Concent 34g/dL (31-37) Red Cell Distribution Width 30.3% (11.5-14.5) Platelet Count 56x10^3/uL (140-400) Neutrophils (%) (Auto) 46% (31-73) Lymphocytes (%) (Auto) 36% (24-48) Monocytes (%) (Auto) 11% (0-9) Eosinophils (%) (Auto) 6% (0-3) Basophils (%) (Auto) 1% (0-3) Neutrophils # (Auto) 0.5x10^3uL (1.8-7.7) Lymphocytes # (Auto) 0.4x10^3/uL (1.0-4.8) Monocytes # (Auto) 0.1x10^3/uL (0.0-1.1) Eosinophils # (Auto) 0.1x10^3/uL (0.0-0.7) Basophils # (Auto) 0.0x10^3/uL (0.0-0.2) Segmented Neutrophils % 35% (35-66) Band Neutrophils % 2% (0-9) Lymphocytes % 43% (24-48) Monocytes % 9% (0-10) Eosinophils % 11% (0-5) Nucleated Red Blood Cells 2 Platelet Estimate Decreased (ADEQUATE) Hypochromasia Slight Anisocytosis Marked Macrocytosis Mod Spherocytes Few Ovalocytes Mod Reticulocyte Count (auto) 7.9% (0.5-2.5) Prothrombin Time 18.0SEC (11.7-14.0) Prothromb Time International Ratio 1.6 (0.8-1.1) Sodium Level 147mmol/L (136-145) Potassium Level 3.4mmol/L (3.5-5.1) Chloride Level 108mmol/L (98-107) Carbon Dioxide Level 34mmol/L (21-32) Anion Gap 5 (6-14) Blood Urea Nitrogen 8mg/dL (7-20) Creatinine 0.5mg/dL (0.6-1.0) Estimated GFR (Cockcroft-Gault) 123.1 Glucose Level 92mg/dL (70-99) Calcium Level 8.3mg/dL (8.5-10.1) Total Bilirubin 5.5mg/dL (0.2-1.0) Direct Bilirubin 1.0mg/dL (0.0-0.2) Aspartate Amino Transf (AST/SGOT) 31U/L (15-37) Alanine Aminotransferase (ALT/SGPT) 10U/L (14-59) Alkaline Phosphatase 81U/L (46-116) Creatine Kinase 23U/L (26-192) Troponin I Quantitative 0.018ng/mL (0.000-0.055) Total Protein 6.7g/dL (6.4-8.2) Albumin 3.2g/dL (3.4-5.0) Lactic Acid Level 0.8mmol/L (0.4-2.0) Ammonia 36mcmol/L (11-34) Nasal Screen MRSA (PCR) Negative (Negative) Lactate Dehydrogenase 306U/L (81-234) Test 03/16/16 04:30 White Blood Count 1.3x10^3/uL (4.0-11.0) Red Blood Count 2.26x10^6/uL (3.50-5.40) Hemoglobin 8.5g/dL (12.0-15.5) Hematocrit 24.4% (36.0-47.0) Mean Corpuscular Volume 108fL (79-100) Mean Corpuscular Hemoglobin 38pg (25-35) Mean Corpuscular Hemoglobin Concent 35g/dL (31-37) Red Cell Distribution Width 31.1% (11.5-14.5) Platelet Count 59x10^3/uL (140-400) Sodium Level 145mmol/L (136-145) Potassium Level 3.3mmol/L (3.5-5.1) Chloride Level 107mmol/L (98-107) Carbon Dioxide Level 32mmol/L (21-32) Anion Gap 6 (6-14) Blood Urea Nitrogen 9mg/dL (7-20) Creatinine 0.5mg/dL (0.6-1.0) Estimated GFR (Cockcroft-Gault) 123.1 BUN/Creatinine Ratio 18 (6-20) Glucose Level 91mg/dL (70-99) Calcium Level 8.2mg/dL (8.5-10.1) Total Bilirubin 5.5mg/dL (0.2-1.0) Aspartate Amino Transf (AST/SGOT) 31U/L (15-37) Alanine Aminotransferase (ALT/SGPT) 11U/L (14-59) Alkaline Phosphatase 82U/L (46-116) Total Protein 7.0g/dL (6.4-8.2) Albumin 3.0g/dL (3.4-5.0) Albumin/Globulin Ratio 0.8 (1.0-1.7) Laboratory Tests Test 03/15/16 13:25 03/16/16 04:30 Lactate Dehydrogenase 306U/L (81-234) White Blood Count 1.3x10^3/uL (4.0-11.0) Red Blood Count 2.26x10^6/uL (3.50-5.40) Hemoglobin 8.5g/dL (12.0-15.5) Hematocrit 24.4% (36.0-47.0) Mean Corpuscular Volume 108fL (79-100) Mean Corpuscular Hemoglobin 38pg (25-35) Mean Corpuscular Hemoglobin Concent 35g/dL (31-37) Red Cell Distribution Width 31.1% (11.5-14.5) Platelet Count 59x10^3/uL (140-400) Sodium Level 145mmol/L (136-145) Potassium Level 3.3mmol/L (3.5-5.1) Chloride Level 107mmol/L (98-107) Carbon Dioxide Level 32mmol/L (21-32) Anion Gap 6 (6-14) Blood Urea Nitrogen 9mg/dL (7-20) Creatinine 0.5mg/dL (0.6-1.0) Estimated GFR (Cockcroft-Gault) 123.1 BUN/Creatinine Ratio 18 (6-20) Glucose Level 91mg/dL (70-99) Calcium Level 8.2mg/dL (8.5-10.1) Total Bilirubin 5.5mg/dL (0.2-1.0) Aspartate Amino Transf (AST/SGOT) 31U/L (15-37) Alanine Aminotransferase (ALT/SGPT) 11U/L (14-59) Alkaline Phosphatase 82U/L (46-116) Total Protein 7.0g/dL (6.4-8.2) Albumin 3.0g/dL (3.4-5.0) Albumin/Globulin Ratio 0.8 (1.0-1.7) Medications Current Medications Fentanyl Citrate (Fentanyl 2ml Vial) 50 mcg PRN Q15MIN PRN IV pain over 3 Last administered on 03/15/16 04:10; Start 03/15/16 at 04:00 Morphine Sulfate 2 mg PRN Q2HR PRN IV PAIN Last administered on 03/16/16 03:46 ; Start 03/15/16 at 12:00 Lactulose 20 gm BID PO Last administered on 03/16/16 08:39; Start 03/15/16 at 13:00 Pantoprazole Sodium (Protonix) 40 mg DAILYAC PO Last administered on 03/16/16 08:39; Start 03/15/16 at 13:00 Phytonadione (Mephyton) 10 mg DAILY PO Last administered on 03/16/16 09:30; Start 03/16/16 at 09:30; Stop 03/19/16 at 09:29 Thiamine HCl (Vitamin B-1) 100 mg DAILY PO Last administered on 03/16/16 09:30 ; Start 03/16/16 at 09:30 Folic Acid (Folic Acid) 1 mg DAILY PO Last administered on 03/16/16 09:30; Start 03/16/16 at 09:30 Active Scripts Active Lactulose 20 Gm/30 Ml Solution 30 Gm PO BID Reported Clonazepam 1 Mg Tablet 2 Tab PO QHS Potassium Chloride 20 Meq Tab.er.prt 1 Tab PO DAILY Paxil (Paroxetine Hcl) 40 Mg Tablet 1 Tab PO DAILY Omeprazole 20 Mg Capsule. 1 Cap PO DAILY Vitals/I & O Vital Sign - Last 24 Hours 03/15/16 03/15/16 03/15/16 03/15/16 12:45 15:28 19:38 20:00 Temp 99.1 98.5 99.1 98.5 Pulse 71 76 Resp 20 20 B/P 118/43 115/54 Pulse Ox 91 90 91 O2 Delivery Room Air Room Air Room Air Room Air 03/15/16 03/15/16 03/16/16 03/16/16 20:51 23:00 03:46 03:55 Temp 98.6 98.9 98.6 98.9 Pulse 84 81 B/P 115/46 130/59 Pulse Ox 91 90 90 95 O2 Delivery Room Air Room Air Room Air Simple Mask O2 Flow Rate 6.0 03/16/16 03/16/16 03/16/16 04:16 07:00 08:30 Temp 98.7 98.7 Pulse 70 Resp 16 B/P 121/52 Pulse Ox 95 97 O2 Delivery Room Air Room Air Room Air O2 Flow Rate 6.0 Intake and Output 03/15/16 03/15/16 03/16/16 15:00 23:00 07:00 Intake Total 200 ml 720 ml Balance 200 ml 720 ml IVAN NIELSEN MD Mar 16, 2016 10:52
[2016-03-16 11:00] VITALS: BP 112/53
--- NOTE | 2016-03-16 11:18 | PDOC ---
SUBJECTIVE Subjective She is moaning and looks uncomfortable, states that she hurts all over OBJECTIVE Objective Her vital signs has been stable Vital Signs Vital Signs Date Time Temp Pulse Resp B/P Pulse Ox O2 Delivery O2 Flow Rate FiO2 03/16/16 08:30 Room Air 03/16/16 07:00 98.7 70 16 121/52 97 Room Air 98.7 03/16/16 04:16 95 Room Air 6.0 03/16/16 03:55 98.9 81 130/59 95 Simple Mask 6.0 98.9 03/16/16 03:46 90 Room Air 03/15/16 23:00 98.6 84 115/46 90 Room Air 98.6 03/15/16 20:51 91 Room Air 03/15/16 20:00 Room Air 03/15/16 19:38 98.5 76 20 115/54 91 Room Air 98.5 03/15/16 15:28 99.1 71 20 118/43 90 Room Air 99.1 03/15/16 12:45 91 Room Air I & O Intake and Output 03/16/16 07:00 Intake Total 920 ml Balance 920 ml Intake Oral 920 ml # Voids 6 PHYSICAL EXAM Physical Exam No change in her physical exam ASSESSMENT/PLAN Assessment/Plan 1. Mechanical fall with no obvious fracture. 2. Pancytopenia due to autoimmune hepatitis and liver cirrhosis. 3. Anemia with high indirect bilirubin, appreciate hematology input 4. Electrolytes abnormality due to dehydration. 5. Multiple bruises and ecchymoses. 6. Autoimmune hepatitis. Discussed with the Dr. Whelan her prognosis is poor and steroids might help but will not make a difference on the short-term, recommendations to follow up with hepatology 7. History of encephalopathy. Continue supportive plans and avoid sedatives upon discharge Dr. Godoy will resume care tomorrow Problems: COMMENT Lab Laboratory Tests Test 03/15/16 13:25 03/16/16 04:30 Lactate Dehydrogenase 306U/L (81-234) White Blood Count 1.3x10^3/uL (4.0-11.0) Red Blood Count 2.26x10^6/uL (3.50-5.40) Hemoglobin 8.5g/dL (12.0-15.5) Hematocrit 24.4% (36.0-47.0) Mean Corpuscular Volume 108fL (79-100) Mean Corpuscular Hemoglobin 38pg (25-35) Mean Corpuscular Hemoglobin Concent 35g/dL (31-37) Red Cell Distribution Width 31.1% (11.5-14.5) Platelet Count 59x10^3/uL (140-400) Sodium Level 145mmol/L (136-145) Potassium Level 3.3mmol/L (3.5-5.1) Chloride Level 107mmol/L (98-107) Carbon Dioxide Level 32mmol/L (21-32) Anion Gap 6 (6-14) Blood Urea Nitrogen 9mg/dL (7-20) Creatinine 0.5mg/dL (0.6-1.0) Estimated GFR (Cockcroft-Gault) 123.1 BUN/Creatinine Ratio 18 (6-20) Glucose Level 91mg/dL (70-99) Calcium Level 8.2mg/dL (8.5-10.1) Total Bilirubin 5.5mg/dL (0.2-1.0) Aspartate Amino Transf (AST/SGOT) 31U/L (15-37) Alanine Aminotransferase (ALT/SGPT) 11U/L (14-59) Alkaline Phosphatase 82U/L (46-116) Total Protein 7.0g/dL (6.4-8.2) Albumin 3.0g/dL (3.4-5.0) Albumin/Globulin Ratio 0.8 (1.0-1.7) KULWINDER MATHEWS MD Mar 16, 2016 11:18
[2016-03-16] MEDS: IV DEXTROSE 5% - 0.9 % NACL 1,000 ML IV SCH (11:40)
[2016-03-16] MEDS ORDERED: POTASSIUM CHLORIDE 20 MEQ TABLET.ER. PO ONE (12:00)
[2016-03-16 15:00] VITALS: BP 119/49
[2016-03-16 19:44] VITALS: BP 113/54
[2016-03-16 23:12] VITALS: BP 116/50
[2016-03-17 04:03] VITALS: BP 107/49
[2016-03-17 05:18] LABS: HEMATOCRIT 24.1 % (36.0-47.0); HEMOGLOBIN 8.1 g/dL (12.0-15.5); RED BLOOD COUNT 2.16 x10^6/uL (3.50-5.40); RED CELL DISTRIBUTION WIDTH 31.9 % (11.5-14.5)
[2016-03-17 05:21] LABS: WHITE BLOOD COUNT 1.3 x10^3/uL (4.0-11.0)
[2016-03-17 05:56] LABS: ALBUMIN 2.8 g/dL (3.4-5.0); ALBUMIN/GLOBULIN RATIO 0.7 (1.0-1.7); CALCIUM 8.1 mg/dL (8.5-10.1); CREATININE 0.4 mg/dL (0.6-1.0); GFR 159.2; POTASSIUM 3.4 mmol/L (3.5-5.1); TOTAL BILIRUBIN 3.9 mg/dL (0.2-1.0); TOTAL PROTEIN 6.8 g/dL (6.4-8.2)
[2016-03-17 07:00] VITALS: BP 100/44
[2016-03-17] MEDS: IV DEXTROSE 5% - 0.9 % NACL 1,000 ML IV SCH (07:00)
--- NOTE | 2016-03-17 08:51 | PDOC ---
Subjective: Subjective: Heme f/u- pancytopenia Pt with confusion this AM again. States she is still in pain "all over." Groans when you move sheets to look at her without any touch. Also c/o SOB, chest pain. Objective: Vital Signs: Vital Signs Date Time Temp Pulse Resp B/P Pulse Ox O2 Delivery O2 Flow Rate FiO2 03/17/16 04:03 97.2 76 22 107/49 94 Nasal Cannula 2.0 97.2 Physical Exam: Heart: Regular rate Extremities: No edema General: Other (lethargic, groaning in pain without any touch) Lungs: Other (no respiratory distress) Skin: Other (mild chronic bruising on body, no obvious new bruises) Labs/Imaging: CBC unchanged, hgb 8.1, WBC 1.3, plt 70 up from 59 Hapto < 10 Assessment/Plan A/P: 1. Pancytopenia due to imuran now on hold for ~ 1.5 weeks, cirrhosis, splenomegaly - Will take 2 months to assess for new baseline, would recommend weekly CBC - No transfusions needed - Would not do bmbx unless counts decrease further despite holding imuran 2. Remote h/o autoimmune hepatitis- Followed by Dr. Michele at , next appt in May 2016. - I have alerted them of her change in medications 3. Low haptoglobin- due to her cirrhosis and decreased production in the liver - Not pathologic, no reason to follow LAVON BURR DO Mar 17, 2016 08:51
[2016-03-17] MEDS: PANTOPRAZOLE 40 MG TABLET. PO SCH (09:10)
[2016-03-17] MEDS: LACTULOSE 20 GM/30 ML SOLUTION. PO SCH (09:10)
[2016-03-17] MEDS: FOLIC ACID 1 MG TABLET PO SCH (09:10)
[2016-03-17] MEDS: PHYTONADIONE 5 MG TABLET PO SCH (09:11)
[2016-03-17] MEDS: THIAMINE 100 MG TABLET. PO SCH (09:11)
--- NOTE | 2016-03-17 10:07 | PDOC ---
PROGRESS NOTES Subjective Subjective Pt awake and pleasant. States she has pain everywhere, however this pain is chronic. Objective Objective Pt awake and alert. NAD. VSS. Afebrile. Lungs CTA bilat. Resp even and unlabored. Heart with RRR. No murmurs. Vital Signs Date Time Temp Pulse Resp B/P Pulse Ox O2 Delivery O2 Flow Rate FiO2 03/17/16 07:00 98.0 66 21 100/44 94 Room Air 98.0 03/17/16 04:03 2.0 Intake and Output 03/17/16 07:00 Intake Total 2405.7 ml Balance 2405.7 ml Intake Oral 1490 ml IV Total 915.7 ml # Voids 5 Assessment Assessment Problems Medical Problems: (1) Abrasion of face Status: Acute (2) Closed head injury Status: Acute (3) Face lacerations Status: Acute (4) Generalized pain Status: Acute (5) Pancytopenia Status: Acute Plan Plan of Care 1. Mechanical fall -no obvious fractures -Multiple bruises and ecchymoses. 2. Pancytopenia due to autoimmune hepatitis and liver cirrhosis. -Hgb 8.1 -WBC 13 -Platelet 70 3. Anemia with high indirect bilirubin 4. Electrolytes abnormality due to dehydration. -Hypokalemia, K 3.4 this am -Add KCl 10mEq qam with breakfast 5. Autoimmune hepatitis. -Pt followed by hepatology -Prognosis poor -Imuran Dc'd upon previous admission secondary to worsening pancytopenia 6. History of encephalopathy. Pt to Dc today back to [facility]. Regular diet. Activity as tolerated. Resume previous medications. Continue M, W, F CBC and weekly CMP. Comment Review of Relevant I have reviewed the following items bruce (where applicable) has been applied. Labs Laboratory Tests Test 03/15/16 13:25 03/16/16 04:30 03/17/16 03:40 Haptoglobin <10mg/dL (34-200) Lactate Dehydrogenase 306U/L (81-234) White Blood Count 1.3x10^3/uL (4.0-11.0) 1.3x10^3/uL (4.0-11.0) Red Blood Count 2.26x10^6/uL (3.50-5.40) 2.16x10^6/uL (3.50-5.40) Hemoglobin 8.5g/dL (12.0-15.5) 8.1g/dL (12.0-15.5) Hematocrit 24.4% (36.0-47.0) 24.1% (36.0-47.0) Mean Corpuscular Volume 108fL (79-100) 112fL (79-100) Mean Corpuscular Hemoglobin 38pg (25-35) 38pg (25-35) Mean Corpuscular Hemoglobin Concent 35g/dL (31-37) 34g/dL (31-37) Red Cell Distribution Width 31.1% (11.5-14.5) 31.9% (11.5-14.5) Platelet Count 59x10^3/uL (140-400) 70x10^3/uL (140-400) Sodium Level 145mmol/L (136-145) 148mmol/L (136-145) Potassium Level 3.3mmol/L (3.5-5.1) 3.4mmol/L (3.5-5.1) Chloride Level 107mmol/L (98-107) 111mmol/L (98-107) Carbon Dioxide Level 32mmol/L (21-32) 32mmol/L (21-32) Anion Gap 6 (6-14) 5 (6-14) Blood Urea Nitrogen 9mg/dL (7-20) 9mg/dL (7-20) Creatinine 0.5mg/dL (0.6-1.0) 0.4mg/dL (0.6-1.0) Estimated GFR (Cockcroft-Gault) 123.1 159.2 BUN/Creatinine Ratio 18 (6-20) 23 (6-20) Glucose Level 91mg/dL (70-99) 100mg/dL (70-99) Calcium Level 8.2mg/dL (8.5-10.1) 8.1mg/dL (8.5-10.1) Total Bilirubin 5.5mg/dL (0.2-1.0) 3.9mg/dL (0.2-1.0) Aspartate Amino Transf (AST/SGOT) 31U/L (15-37) 35U/L (15-37) Alanine Aminotransferase (ALT/SGPT) 11U/L (14-59) 7U/L (14-59) Alkaline Phosphatase 82U/L (46-116) 76U/L (46-116) Total Protein 7.0g/dL (6.4-8.2) 6.8g/dL (6.4-8.2) Albumin 3.0g/dL (3.4-5.0) 2.8g/dL (3.4-5.0) Albumin/Globulin Ratio 0.8 (1.0-1.7) 0.7 (1.0-1.7) Laboratory Tests Test 03/17/16 03:40 White Blood Count 1.3x10^3/uL (4.0-11.0) Red Blood Count 2.16x10^6/uL (3.50-5.40) Hemoglobin 8.1g/dL (12.0-15.5) Hematocrit 24.1% (36.0-47.0) Mean Corpuscular Volume 112fL (79-100) Mean Corpuscular Hemoglobin 38pg (25-35) Mean Corpuscular Hemoglobin Concent 34g/dL (31-37) Red Cell Distribution Width 31.9% (11.5-14.5) Platelet Count 70x10^3/uL (140-400) Sodium Level 148mmol/L (136-145) Potassium Level 3.4mmol/L (3.5-5.1) Chloride Level 111mmol/L (98-107) Carbon Dioxide Level 32mmol/L (21-32) Anion Gap 5 (6-14) Blood Urea Nitrogen 9mg/dL (7-20) Creatinine 0.4mg/dL (0.6-1.0) Estimated GFR (Cockcroft-Gault) 159.2 BUN/Creatinine Ratio 23 (6-20) Glucose Level 100mg/dL (70-99) Calcium Level 8.1mg/dL (8.5-10.1) Total Bilirubin 3.9mg/dL (0.2-1.0) Aspartate Amino Transf (AST/SGOT) 35U/L (15-37) Alanine Aminotransferase (ALT/SGPT) 7U/L (14-59) Alkaline Phosphatase 76U/L (46-116) Total Protein 6.8g/dL (6.4-8.2) Albumin 2.8g/dL (3.4-5.0) Albumin/Globulin Ratio 0.7 (1.0-1.7) Medications Current Medications Fentanyl Citrate (Fentanyl 2ml Vial) 50 mcg PRN Q15MIN PRN IV pain over 3 Last administered on 03/15/16 04:10; Start 03/15/16 at 04:00 Morphine Sulfate 2 mg PRN Q2HR PRN IV PAIN Last administered on 03/16/16 23:49 ; Start 03/15/16 at 12:00 Lactulose 20 gm BID PO Last administered on 03/17/16 09:10; Start 03/15/16 at 13:00 Pantoprazole Sodium (Protonix) 40 mg DAILYAC PO Last administered on 03/17/16 09:10; Start 03/15/16 at 13:00 Phytonadione (Mephyton) 10 mg DAILY PO Last administered on 03/17/16 09:11; Start 03/16/16 at 09:30; Stop 03/19/16 at 09:29 Thiamine HCl (Vitamin B-1) 100 mg DAILY PO Last administered on 03/17/16 09:11 ; Start 03/16/16 at 09:30 Folic Acid (Folic Acid) 1 mg DAILY PO Last administered on 03/17/16 09:10; Start 03/16/16 at 09:30 Potassium Chloride 20 meq 20 meq 1X ONCE PO Last administered on 03/16/16 11: 40; Start 03/16/16 at 12:00; Stop 03/16/16 at 12:01; Status DC Dextrose/Sodium Chloride (Iv D5% - NS) 1,000 ml @ 50 mls/hr Q20H IV Last administered on 03/17/16 07:00; Start 03/16/16 at 12:00 Active Scripts Active Lactulose 20 Gm/30 Ml Solution 30 Gm PO BID Reported Clonazepam 1 Mg Tablet 2 Tab PO QHS Potassium Chloride 20 Meq Tab.er.prt 1 Tab PO DAILY Paxil (Paroxetine Hcl) 40 Mg Tablet 1 Tab PO DAILY Omeprazole 20 Mg Capsule. 1 Cap PO DAILY Vitals/I & O Vital Sign - Last 24 Hours 03/16/16 03/16/16 03/16/16 03/16/16 11:00 15:00 19:44 20:00 Temp 98.7 99.5 99.0 98.7 99.5 99.0 Pulse 77 76 77 Resp 16 18 18 B/P 112/53 119/49 113/54 Pulse Ox 100 97 94 O2 Delivery Venturi Mask Venturi Mask Nasal Cannula Nasal Cannula O2 Flow Rate 7.0 7.0 2.0 2.0 03/16/16 03/16/16 03/16/16 03/17/16 20:06 23:12 23:49 00:23 Temp 98.6 98.6 Pulse 78 Resp 26 20 18 20 B/P 116/50 Pulse Ox 97 O2 Delivery Nasal Cannula Nasal Cannula Nasal Cannula Nasal Cannula O2 Flow Rate 2.0 2.0 2.0 2.0 03/17/16 03/17/16 03/17/16 03:00 04:03 07:00 Temp 97.2 98.0 97.2 98.0 Pulse 76 66 Resp 22 21 B/P 107/49 100/44 Pulse Ox 95 94 94 O2 Delivery Nasal Cannula Nasal Cannula Room Air O2 Flow Rate 2.0 2.0 Intake and Output 03/16/16 03/16/16 03/17/16 15:00 23:00 07:00 Intake Total 300 ml 950 ml 1155.7 ml Balance 300 ml 950 ml 1155.7 ml GENEVA SMITH MD Mar 17, 2016 10:07
[2016-03-17] MEDS ORDERED: POTASSIUM CHLORIDE 10 MEQ TABLET.ER. PO SCH (10:15)
--- NOTE | 2016-03-17 10:22 | PDOC ---
Subjective: Subjective: Hurts all over. No bleeding, having BMs, eating okay. Objective: Vital Signs: Vital Signs Date Time Temp Pulse Resp B/P Pulse Ox O2 Delivery O2 Flow Rate FiO2 03/17/16 07:00 98.0 66 21 100/44 94 Room Air 98.0 03/17/16 04:03 2.0 Labs: Laboratory Tests Test 03/17/16 03:40 White Blood Count 1.3x10^3/uL Red Blood Count 2.16x10^6/uL Hemoglobin 8.1g/dL Hematocrit 24.1% Mean Corpuscular Volume 112fL Mean Corpuscular Hemoglobin 38pg Mean Corpuscular Hemoglobin Concent 34g/dL Red Cell Distribution Width 31.9% Platelet Count 70x10^3/uL Sodium Level 148mmol/L Potassium Level 3.4mmol/L Chloride Level 111mmol/L Carbon Dioxide Level 32mmol/L Anion Gap 5 Blood Urea Nitrogen 9mg/dL Creatinine 0.4mg/dL Estimated GFR (Cockcroft-Gault) 159.2 BUN/Creatinine Ratio 23 Glucose Level 100mg/dL Calcium Level 8.1mg/dL Total Bilirubin 3.9mg/dL Aspartate Amino Transf (AST/SGOT) 35U/L Alanine Aminotransferase (ALT/SGPT) 7U/L Alkaline Phosphatase 76U/L Total Protein 6.8g/dL Albumin 2.8g/dL Albumin/Globulin Ratio 0.7 PE: GEN: NAD LUNGS: CTAB anteriorly HEART: RRR ABD: S/ND/NT NEURO/PSYCH: some lethargy, answers questions appropriately A/P: Pancytopenia -Hgb stable, WBC and plt low -h/o DU in 2011, latest EGD in 09/2015 w/ non-erosive gastritis, last colonoscopy in 2010 -on PPI -heme/onc has seen Cirrhosis, ?autoimmune, h/o hepatic encephalopathy -Imuran stopped last admission w/ pancytopenia, has f/u at [facility] (Dr. Michele) -BMs on lactulose, ammonia improved from last admission -- ?possible DC today Reviewed Dr. Niño's note - recs to check CBC weekly. Continue lactulose. KINGSLEY CONNOLLY Mar 17, 2016 10:22
[2016-03-17 11:15] VITALS: BP 109/33
--- NOTE | 2016-03-17 15:01 | DS ---
DATE OF DISCHARGE: 03/17/2016 DATE OF DISCHARGE: 03/17/2016 DISCHARGE DIAGNOSES: 1. Mechanical fall. 2. Pancytopenia. 3. Autoimmune hepatitis and autoimmune liver disease. HISTORY OF PRESENT ILLNESS: This is a 65-year-old female who is well known to me from clinic followup as well as recent hospitalization. The patient was most recently discharged from the hospital to the [facility]. On the date of readmission to the hospital, the [facility] and she was subsequently sent to the Emergency Room. Upon evaluation in the Emergency Room, multiple x-rays were done. None of these revealed an acute fracture. The patient did have a laceration on her right cheek as well as nose bleed prior to presenting to the Emergency Room and the bleeding had subsided to both of these location during the ER physician workup. It was felt that the patient should be admitted for short stay observation secondary to her chronic pancytopenia and her worsening white blood cell count as well as worsening encephalopathy. SUMMARY OF STAY: Upon admission, GI was consulted as well as Hematology for their insight. The patient's blood cell count were monitored daily and WBC did improve to 1.3 on the day of discharge. The patient's hemoglobin remained stable, was 8.6 upon admission and 8.1 upon discharge. Her platelet count does seem to be responding to the Imuran being discontinued and upon the day of discharge was 70,000. Bilirubin remained stable at 3.9. DISPOSITION: The patient will be discharged back to the [facility] for further care home services and rehab. DIET: Regular. ACTIVITY: As tolerated. PT and OT will be evaluated begin treatment for rehabilitation purposes. DISCHARGE MEDICATIONS: Listed on the medical record and have been addressed. FOLLOWUP: We will continue to follow the patient's care throughout her stay at the [facility], Thursday, Thursday and Thursday CBC will be obtained as well as weekly CMPs. The patient stated understanding of her discharge to the hospital back to care home and denied questions. GENEVA SMITH MD DR: WAYNE/talat JOB#: [id number] / [id number]
== END 2016-03-17 14:25 | DRG 808 ==
LOC: ER 02:31 → 5 NORTH 05:20
PROVIDERS: ADMIT Family Medicine; ATTEND Family Medicine
DX: D61.811 Other drug-induced pancytopenia (principal); G93.40 Encephalopathy, unspecified; N39.0 Urinary tract infection, site not specified; S01.81XA Laceration without foreign body of other part of head, initial encounter; W19.XXXA Unspecified fall, initial encounter; D73.1 Hypersplenism; E86.0 Dehydration; K74.60 Unspecified cirrhosis of liver; K75.4 Autoimmune hepatitis; G47.30 Sleep apnea, unspecified; H40.9 Unspecified glaucoma; I10 Essential (primary) hypertension; K21.9 Gastro-esophageal reflux disease without esophagitis; R04.0 Epistaxis; T45.1X5A Adverse effect of antineoplastic and immunosuppressive drugs, initial encounter; M19.90 Unspecified osteoarthritis, unspecified site; W18.39XA Other fall on same level, initial encounter; F32.9 Major depressive disorder, single episode, unspecified; F41.9 Anxiety disorder, unspecified; H26.9 Unspecified cataract; Y93.89 Activity, other specified; Z79.899 Other long term (current) drug therapy; Z90.49 Acquired absence of other specified parts of digestive tract; Y92.121 Bathroom in nursing home as the place of occurrence of the external cause; Y99.8 Other external cause status; Z87.11 Personal history of peptic ulcer disease; Z87.440 Personal history of urinary (tract) infections
CPT/HCPCS: 36415; 70450; 70486; 71010; 72125; 73030; 73130; 73610; 80048; 80053; 80076; 82140; 82550; 83010; 83605; 83615; 84484; 85007; 85027; 85045; 85610; 86880; 87641; 93005; J2270; J3010; J7042